=== PATIENT | male | born 1965 | race Caucasian/White ===

== ENCOUNTER 2021-04-22 15:15 | Inpatient (IN) | payer MEDICAID, OTHER ==
[~2021-04-22] VITALS: Ht 177.8 cm; Wt 132.9 kg
[2021-04-22 17:06] LABS: BASOPHILS % (AUTO) 0.9 % (0.0-2.0); HEMATOCRIT 49.2 % (41-53); HEMOGLOBIN 16.1 g/dL (13.5-17.5); LYMPHOCYTES # (AUTO) 3.5 K/uL (1.0-4.8); LYMPHOCYTES % (AUTO) 31.7 % (22.0-44.0); MEAN CORPUSCULAR HEMOGLOBIN 29.5 pg (26.0-34.0); MEAN CORPUSCULAR HGB CONC 32.7 G/dL (31.0-37.0); MEAN CORPUSCULAR VOLUME 90 fL (80-100); MONOCYTES # (AUTO) 0.7 K/uL (0.1-1.0); MONOCYTES % (AUTO) 6.3 % (2.0-9.0); NEUTROPHILS # (AUTO) 6.6 K/uL (1.8-7.7); NEUTROPHILS % (AUTO) 60.1 % (40.0-70.0); PLATELET COUNT (AUTO) 255 K/uL (150-450); RED BLOOD CELL COUNT(AUTO) 5.46 MIL/uL (4.50-5.90); RED CELL DISTRIBUTION WIDTH 14.6 % (11.5-14.5)
[2021-04-22 17:23] LABS: ANION GAP 14 mmol/L (8-16); CALCIUM, TOTAL 9.1 mg/dL (8.8-10.5); CARBON DIOXIDE 24 mmol/L (22-29); CHLORIDE 100 mmol/L (98-107); CREATININE 1.05 mg/dL (0.60-1.30); GLOMERULAR FILTR. RATE CALC > 60 mL/min (>60); GLUCOSE,RANDOM 116 mg/dL (70-110); POTASSIUM 3.6 mmol/L (3.5-5.1); SODIUM SERUM 138 mmol/L (136-145); UREA NITROGEN, BLOOD 22 mg/dL (7-18)
[2021-04-22 17:30] LABS: ALANINE AMINOTRANSFERASE 28 U/L (12-78); ALBUMIN 3.7 g/dL (3.4-5.0); ALKALINE PHOSPHATASE 106 U/L (46-116); ASPARTATE AMINOTRANSFERASE 25 U/L (15-37); BILIRUBIN,TOTAL 0.6 mg/dL (0.1-1.0); TOTAL PROTEIN, SERUM 8.4 g/dL (6.4-8.2)
[2021-04-22] MEDS ORDERED: POLYMYXIN B/TRIMETHOPRIM 10 ML OPHTHALMIC SOLUTION OU ONE (21:00)
[2021-04-22] MEDS ORDERED: KETOROLAC TROMETHAMINE 30 MG/ML VIAL IM ONE (21:00)
[2021-04-22 22:21] LABS: COVID AG,FIA SOURCE NASOPHARYNGEAL
[2021-04-23] MEDS ORDERED: LORazepam 2 MG TABLET PO PRN (01:15)
[2021-04-23] MEDS ORDERED: POLYMYXIN B/TRIMETHOPRIM 10 ML OPHTHALMIC SOLUTION OU ONE (03:30)
[2021-04-23] MEDS: POLYMYXIN B/TRIMETHOPRIM 10 ML OPHTHALMIC SOLUTION OU SCH ×5 (04:10→16:00)
[2021-04-23] MEDS ORDERED: DOCUSATE SODIUM 100 MG CAPSULE PO PRN (06:30)
[2021-04-23] MEDS ORDERED: OMEPRAZOLE 20 MG CAPSULE PO PRN (06:30)
[2021-04-23] MEDS ORDERED: ONDANSETRON HCL 4 MG TABLET PO PRN (06:30)
[2021-04-23] MEDS ORDERED: CloNIDine HCL 0.1 MG TABLET PO PRN (06:30)
[2021-04-23] MEDS ORDERED: MAG HYDROX/AL HYDROX/SIMETH ES 30 ML SUSPENSION UDCUP PO PRN (06:30)
[2021-04-23] MEDS ORDERED: ACETAMINOPHEN 325 MG TABLET PO PRN (06:30)
[2021-04-23] MEDS ORDERED: MAGNESIUM HYDROXIDE SUSPENSION 30 ML UDCUP PO PRN (06:30)
[2021-04-23] MEDS ORDERED: BENZOCAINE/MENTHOL LOZENGE PO PRN (06:30)
[2021-04-23] MEDS ORDERED: LOPERAMIDE HCL 2 MG CAPSULE PO PRN (06:30)
[2021-04-23] MEDS ORDERED: IBUPROFEN 600 MG TABLET PO PRN (06:30)
[2021-04-23] MEDS ORDERED: BACITRACIN 28 GM OINTMENT TP PRN (06:30)
[2021-04-23] MEDS ORDERED: PETROLATUM,WHITE 28 GM JELLY TP PRN (06:30)
[2021-04-23] MEDS ORDERED: ALBUTEROL SULFATE HFA 90 MCG/PUFF 8 GM INHALER IH PRN (06:30)
[2021-04-23 12:57] VITALS: BP 157/64
[2021-04-23] MEDS ORDERED: PERMETHRIN 5% 60 GM CREAM TP ONE ×2 (15:45→16:00)
[2021-04-23 16:19] VITALS: BP 139/83
[2021-04-24 00:40] VITALS: BP 138/78
[2021-04-24] MEDS ORDERED: PERMETHRIN 5% 60 GM CREAM TP ONE (01:00)
[2021-04-24] MEDS ORDERED: HALOPERIDOL LACTATE 5 MG/ML VIAL ONE (20:29)
[2021-04-24] MEDS ORDERED: DiphenhydrAMINE HCL 50 MG/ML VIAL ONE (20:29)
[2021-04-24] MEDS ORDERED: LORazepam 2 MG/ML VIAL ONE (20:29)
[2021-04-24] MEDS ORDERED: HALOPERIDOL LACTATE 5 MG/ML VIAL IM ONE (20:30)
[2021-04-24] MEDS ORDERED: LORazepam 2 MG/ML VIAL IM ONE (20:30)
[2021-04-24] MEDS ORDERED: DiphenhydrAMINE HCL 50 MG/ML VIAL IM ONE (20:30)
[2021-04-25] MEDS ORDERED: CloZAPine 25 MG TABLET PO SCH (09:00)
[2021-04-25] MEDS ORDERED: LORazepam 2 MG/ML VIAL ONE (11:42)
[2021-04-25] MEDS ORDERED: HALOPERIDOL LACTATE 5 MG/ML VIAL ONE (11:43)
[2021-04-25] MEDS ORDERED: DiphenhydrAMINE HCL 50 MG/ML VIAL ONE (11:43)
[2021-04-25] MEDS ORDERED: HALOPERIDOL LACTATE 5 MG/ML VIAL IM ONE (11:45)
[2021-04-25] MEDS ORDERED: LORazepam 2 MG/ML VIAL IM ONE (11:45)
[2021-04-25] MEDS ORDERED: DiphenhydrAMINE HCL 50 MG/ML VIAL IM ONE (11:45)
[2021-04-25] MEDS: HALOPERIDOL 5 MG TABLET PO PRN (20:21)
[2021-04-26 08:13] VITALS: BP 158/105
[2021-04-26] MEDS ORDERED: CloZAPine 25 MG TABLET PO SCH ×2 (09:00→21:00)
[2021-04-26 16:00] VITALS: BP 122/89
[2021-04-26 16:29] VITALS: BP 122/89
[2021-04-27 04:50] VITALS: BP 145/80
[2021-04-27 08:36] VITALS: BP 129/88
[2021-04-27] MEDS ORDERED: CloZAPine 25 MG TABLET PO SCH ×2 (09:00→21:00)
[2021-04-27 16:00] VITALS: BP 149/94
[2021-04-27 16:02] VITALS: BP 149/94
[2021-04-27] MEDS: ZOLPIDEM TARTRATE 10 MG TABLET PO PRN (22:40)
[2021-04-28 05:27] VITALS: BP 124/91
[2021-04-28 06:09] LABS: BASOPHILS % (AUTO) 1.2 % (0.0-2.0); EOSINOPHILS % (AUTO) 1.7 % (1.0-6.0); HEMATOCRIT 45.1 % (41-53); HEMOGLOBIN 14.8 g/dL (13.5-17.5); LYMPHOCYTES # (AUTO) 3.6 K/uL (1.0-4.8); MEAN CORPUSCULAR HEMOGLOBIN 29.7 pg (26.0-34.0); MEAN CORPUSCULAR HGB CONC 32.8 G/dL (31.0-37.0); MEAN CORPUSCULAR VOLUME 91 fL (80-100); MONOCYTES # (AUTO) 0.9 K/uL (0.1-1.0); MONOCYTES % (AUTO) 8.5 % (2.0-9.0); NEUTROPHILS # (AUTO) 5.6 K/uL (1.8-7.7); NEUTROPHILS % (AUTO) 53.6 % (40.0-70.0); PLATELET COUNT (AUTO) 225 K/uL (150-450); RED BLOOD CELL COUNT(AUTO) 4.98 MIL/uL (4.50-5.90); RED CELL DISTRIBUTION WIDTH 14.4 % (11.5-14.5)
[2021-04-28 08:02] VITALS: BP 129/76
[2021-04-28] MEDS: CloZAPine 25 MG TABLET PO SCH ×2 (09:00→20:01)
[2021-04-28 09:55] LABS: COVID AG,FIA SOURCE NASAL SWAB
[2021-04-28 18:35] VITALS: BP 127/72
[2021-04-28] MEDS: HALOPERIDOL 5 MG TABLET PO PRN (19:06)
[2021-04-28] MEDS: ZOLPIDEM TARTRATE 10 MG TABLET PO PRN (21:02)
[2021-04-29] VITALS: BP 120/70
[2021-04-29 08:45] VITALS: BP 142/92
[2021-04-29] MEDS: CloZAPine 25 MG TABLET PO SCH (09:16)
[2021-04-29] MEDS ORDERED: TraMADol HCL 50 MG TABLET PO PRN (09:30)
[2021-04-29] MEDS ORDERED: CLOZ100T32 PO ×2 (12:56)
[2021-04-29] MEDS ORDERED: CloZAPine 100 MG TABLET PO SCH (21:00)
[2021-04-30] MEDS ORDERED: CloZAPine 25 MG TABLET PO SCH (09:00)
[2021-04-30] MEDS ORDERED: CloZAPine 100 MG TABLET PO SCH ×2 (09:00→21:00)
[2021-04-30] MEDS ORDERED: PERMETHRIN 5% 60 GM CREAM TP ONE (19:00)
[2021-05-01] MEDS ORDERED: CloZAPine 25 MG TABLET PO SCH (09:00)
[2021-05-01] MEDS ORDERED: CloZAPine 100 MG TABLET PO SCH (21:00)
[2021-05-02] MEDS ORDERED: CloZAPine 25 MG TABLET PO SCH (09:00)
[2021-05-02] MEDS ORDERED: CloZAPine 100 MG TABLET PO SCH (21:00)
[2021-05-03] MEDS ORDERED: CloZAPine 100 MG TABLET PO SCH (09:00)
[2021-05-05] MEDS ORDERED: CloZAPine 25 MG TABLET PO SCH (09:00)
[2021-05-05] MEDS ORDERED: CloZAPine 100 MG TABLET PO SCH (21:00)
[2021-05-06] MEDS ORDERED: CloZAPine 25 MG TABLET PO SCH (09:00)
[2021-05-06] MEDS ORDERED: CloZAPine 100 MG TABLET PO SCH (21:00)
[2021-05-07] MEDS ORDERED: CloZAPine 100 MG TABLET PO SCH ×2 (09:00→21:00)
== END 2021-04-29 16:30 | disposition home or self-care (01) | DRG 750 ==
LOC: EMS 15:22 → B2S 04-23 00:30 → 3EI 04-24 00:27
PROVIDERS: ADMIT Psychiatry & Neurology Psychiatry; ATTEND Psychiatry & Neurology Psychiatry
DX: F25.9 Schizoaffective disorder, unspecified (principal); R45.851 Suicidal ideations; I10 Essential (primary) hypertension; E66.9 Obesity, unspecified; F32.9 Major depressive disorder, single episode, unspecified; F41.9 Anxiety disorder, unspecified; G47.00 Insomnia, unspecified; K21.9 Gastro-esophageal reflux disease without esophagitis; K59.00 Constipation, unspecified; Z20.822 Contact with and (suspected) exposure to COVID-19; L30.9 Dermatitis, unspecified; Z56.0 Unemployment, unspecified; Z68.41 Body mass index [BMI] 40.0-44.9, adult
CPT/HCPCS: 70450; 80053; 85025; 87081; 99285; G0480; J1200; J1630; J1885; J2060

== ENCOUNTER 2023-10-25 12:53 | Inpatient (IN) | payer MEDICAID, OTHER ==
[~2023-10-25] VITALS: Ht 180.3 cm; Wt 142.7 kg
[~2023-10-25 12:53] MED LIST: CLOZ100T68 PO
[2023-10-25 15:09] LABS: BASOPHILS % (AUTO) 1.2 % (0.0-2.0); EOSINOPHILS % (AUTO) 0.7 % (1.0-6.0); HEMOGLOBIN 12.8 g/dL (13.5-17.5); LYMPHOCYTES # (AUTO) 3.5 K/uL (1.0-4.8); LYMPHOCYTES % (AUTO) 30.5 % (22.0-44.0); MEAN CORPUSCULAR HEMOGLOBIN 29.4 pg (26.0-34.0); MEAN CORPUSCULAR VOLUME 89 fL (80-100); MONOCYTES # (AUTO) 0.6 K/uL (0.1-1.0); MONOCYTES % (AUTO) 5.2 % (2.0-9.0); NEUTROPHILS # (AUTO) 7.1 K/uL (1.8-7.7); NEUTROPHILS % (AUTO) 62.4 % (40.0-70.0); PLATELET COUNT (AUTO) 278 K/uL (150-450); RED BLOOD CELL COUNT(AUTO) 4.37 MIL/uL (4.50-5.90); RED CELL DISTRIBUTION WIDTH 16.1 % (11.5-14.5); WHITE BLOOD COUNT (AUTO) 11.4 K/uL (4.5-11.0)
[2023-10-25 15:21] LABS: ANION GAP 11 mmol/L (8-16); CALCIUM, TOTAL 8.9 mg/dL (8.8-10.5); CARBON DIOXIDE 22 mmol/L (22-29); CHLORIDE 107 mmol/L (98-107); CREATININE 0.93 mg/dL (0.60-1.30); GLOMERULAR FILTR. RATE CALC > 60 mL/min (>60); GLUCOSE,RANDOM 108 mg/dL (70-110); POTASSIUM 3.7 mmol/L (3.5-5.1); SODIUM SERUM 140 mmol/L (136-145); UREA NITROGEN, BLOOD 16 mg/dL (7-18)
[2023-10-25 15:25] LABS: ALANINE AMINOTRANSFERASE 21 U/L (12-78); ALBUMIN 3.1 g/dL (3.4-5.0); ALKALINE PHOSPHATASE 122 U/L (46-116); ASPARTATE AMINOTRANSFERASE 9 U/L (15-37); BILIRUBIN,TOTAL 0.2 mg/dL (0.1-1.0); TOTAL PROTEIN, SERUM 7.4 g/dL (6.4-8.2)
[2023-10-25 15:33] LABS: ALCOHOL, BLOOD (SERUM) < 3 mg/dL (0-10); SALICYLATE 2.6 mg/dL (2.8-20.0)
[2023-10-25 15:34] LABS: ACETAMINOPHEN < 2 mcg/mL (10-30)
[2023-10-25] MEDS: SODIUM CHLORIDE 0.9% 1,000 ML IV ONE ×2 (16:09→20:59)
[2023-10-25] MEDS ORDERED: BUPR-225 PO (17:29)
[2023-10-25] MEDS ORDERED: SENN-277 PO (17:29)
[2023-10-25] MEDS ORDERED: CHOL500013 PO (17:29)
[2023-10-25] MEDS ORDERED: LINA290C PO (17:29)
[2023-10-25] MEDS ORDERED: TOPI100T37 PO (17:29)
[2023-10-25] MEDS ORDERED: AMLO-257 PO (17:29)
[2023-10-25 18:18] LABS: ANION GAP 14 mmol/L (8-16); CALCIUM, TOTAL 8.5 mg/dL (8.8-10.5); CARBON DIOXIDE 19 mmol/L (22-29); CHLORIDE 108 mmol/L (98-107); CREATININE 0.94 mg/dL (0.60-1.30); GLOMERULAR FILTR. RATE CALC > 60 mL/min (>60); GLUCOSE,RANDOM 130 mg/dL (70-110); POTASSIUM 3.4 mmol/L (3.5-5.1); SODIUM SERUM 141 mmol/L (136-145); UREA NITROGEN, BLOOD 17 mg/dL (7-18)
[2023-10-25 18:24] LABS: ALANINE AMINOTRANSFERASE 21 U/L (12-78); ALKALINE PHOSPHATASE 119 U/L (46-116); ASPARTATE AMINOTRANSFERASE 9 U/L (15-37); BILIRUBIN,TOTAL 0.2 mg/dL (0.1-1.0); TOTAL PROTEIN, SERUM 7.1 g/dL (6.4-8.2)
[2023-10-25 18:44] LABS: COVID AG,FIA SOURCE NASAL SWAB
[2023-10-25 19:01] LABS: SARS-COV2 (COVID) ANTIGEN,FIA Negative (Negative)
[2023-10-25] MEDS ORDERED: LORazepam 2 MG TABLET PO PRN (20:45)
[2023-10-25] MEDS: POTASSIUM CHLORIDE 20 MEQ ER TABLET PO ONE (23:30)
[2023-10-25 23:57] LABS: ALANINE AMINOTRANSFERASE 20 U/L (12-78); ALKALINE PHOSPHATASE 109 U/L (46-116); ANION GAP 12 mmol/L (8-16); ASPARTATE AMINOTRANSFERASE 8 U/L (15-37); BILIRUBIN,TOTAL 0.3 mg/dL (0.1-1.0); CALCIUM, TOTAL 8.2 mg/dL (8.8-10.5); CARBON DIOXIDE 20 mmol/L (22-29); CHLORIDE 110 mmol/L (98-107); CREATININE 0.89 mg/dL (0.60-1.30); GLOMERULAR FILTR. RATE CALC > 60 mL/min (>60); GLUCOSE,RANDOM 128 mg/dL (70-110); POTASSIUM 3.5 mmol/L (3.5-5.1); SODIUM SERUM 142 mmol/L (136-145); TOTAL PROTEIN, SERUM 6.4 g/dL (6.4-8.2); UREA NITROGEN, BLOOD 18 mg/dL (7-18)
[2023-10-25 23:58] LABS: ALBUMIN 2.7 g/dL (3.4-5.0)
[2023-10-26 00:51] LABS: PH,URINE DRUG SCREEN 6.5 (5.0-8.0)
[2023-10-26 00:55] LABS: ALCOHOL, URINE DRUG SCREEN NEGATIVE (NEGATIVE); AMPHET/METH SCREEN,URINE NEGATIVE (NEGATIVE); BARBITURATE SCREEN, URINE NEGATIVE (NEGATIVE); BENZODIAZEPINES SCREEN,URINE NEGATIVE (NEGATIVE); CANNABINOID SCREEN,URINE NEGATIVE (NEGATIVE); COCAINE SCREEN,URINE NEGATIVE (NEGATIVE); METHADONE SCREEN, URINE NEGATIVE (NEGATIVE); OPIATE SCREEN,URINE NEGATIVE (NEGATIVE); PHENCYCLIDINE SCREEN,URINE NEGATIVE (NEGATIVE)
[2023-10-26 03:46] VITALS: BP 150/89; PULSE 88; RESP 18; TEMP 97.6
[2023-10-26 08:00] VITALS: BP 140/93; PULSE 86; RESP 16; TEMP 97.9
[2023-10-26] MEDS: NICOTINE 14 MG/24 HOUR PATCH TD SCH (08:33)
[2023-10-26 11:33] LABS: BASOPHILS % (AUTO) 0.9 % (0.0-2.0); EOSINOPHILS % (AUTO) 1.2 % (1.0-6.0); HEMATOCRIT 39.8 % (41-53); HEMOGLOBIN 13.3 g/dL (13.5-17.5); LYMPHOCYTES # (AUTO) 2.6 K/uL (1.0-4.8); LYMPHOCYTES % (AUTO) 28.3 % (22.0-44.0); MEAN CORPUSCULAR HEMOGLOBIN 29.8 pg (26.0-34.0); MEAN CORPUSCULAR HGB CONC 33.4 G/dL (31.0-37.0); MEAN CORPUSCULAR VOLUME 89 fL (80-100); MONOCYTES # (AUTO) 0.5 K/uL (0.1-1.0); MONOCYTES % (AUTO) 4.9 % (2.0-9.0); NEUTROPHILS % (AUTO) 64.7 % (40.0-70.0); PLATELET COUNT (AUTO) 269 K/uL (150-450); RED BLOOD CELL COUNT(AUTO) 4.47 MIL/uL (4.50-5.90); RED CELL DISTRIBUTION WIDTH 16.1 % (11.5-14.5); WHITE BLOOD COUNT (AUTO) 9.3 K/uL (4.5-11.0)
[2023-10-26] MEDS: BuPROPion HCL 100 MG SR TABLET PO SCH (12:08)
[2023-10-26] MEDS ORDERED: MAGNESIUM HYDROXIDE SUSPENSION 30 ML UDCUP PO PRN (16:45)
[2023-10-26] MEDS ORDERED: ONDANSETRON HCL 4 MG TABLET PO PRN (16:45)
[2023-10-26] MEDS ORDERED: DOCUSATE SODIUM 100 MG CAPSULE PO PRN (16:45)
[2023-10-26] MEDS ORDERED: CloNIDine HCL 0.1 MG TABLET PO PRN (16:45)
[2023-10-26] MEDS ORDERED: MAG HYDROX/ALUMINUM HYD/SIMETH ES 30 ML SUSPENSION UDCUP PO PRN (16:45)
[2023-10-26] MEDS ORDERED: LOPERAMIDE HCL 2 MG CAPSULE PO PRN (16:45)
[2023-10-26] MEDS ORDERED: ACETAMINOPHEN 325 MG TABLET PO PRN (16:45)
[2023-10-26] MEDS ORDERED: NICOTINE 14 MG/24 HOUR PATCH TD PRN (16:45)
[2023-10-26] MEDS ORDERED: GuaiFENesin/D-METHORPHAN [SUGAR-FREE] 200-20MG/10 ML SYRUP UDCUP PO PRN (16:45)
[2023-10-26] MEDS ORDERED: PETROLATUM,WHITE 28 GM JELLY TP PRN (16:45)
[2023-10-26] MEDS ORDERED: IBUPROFEN 400 MG TABLET PO PRN (16:45)
[2023-10-26] MEDS ORDERED: ALBUTEROL SULFATE HFA 90 MCG/PUFF 8 GM INHALER IH PRN (16:45)
[2023-10-26] MEDS: CHOLECALCIFEROL (VIT D3) 5,000 [125 MCG] UNITS CAPSULE PO SCH (20:48)
[2023-10-26] MEDS ORDERED: CloZAPine 100 MG TABLET PO SCH (21:00)
[2023-10-26 22:43] VITALS: BP 138/73; PULSE 80; RESP 18; TEMP 97.2
[2023-10-27] MEDS: HALOPERIDOL 5 MG TABLET PO PRN (05:45)
[2023-10-27 06:12] LABS: HEMOGLOBIN A1C 5.8 % (3.8-5.6)
[2023-10-27 06:25] LABS: THYROID STIMULATING HORMONE 1.96 uIU/mL (0.36-3.74)
[2023-10-27] MEDS: AmLODIPine BESYLATE 5 MG TABLET PO SCH (09:05)
[2023-10-27 10:18] VITALS: BP 133/6; PULSE 75; RESP 18; TEMP 97.8
[2023-10-27 11:04] LABS: CHOL/HDL RATIO 6.2 (4.2-7.3)
[2023-10-27 20:06] VITALS: BP 131/79; PULSE 86; RESP 18; TEMP 98.3
[2023-10-27] MEDS: ZOLPIDEM TARTRATE 10 MG TABLET PO PRN (21:09)
[2023-10-28 08:12] LABS: APPEARANCE,URINE CLEAR (CLEAR); BILIRUBIN,URINE NEGATIVE (NEGATIVE); COLOR,URINE LIGHT YELLOW (YELLOW); GLUCOSE, URINE (UA) NEGATIVE (NEGATIVE); KETONES,URINE NEGATIVE (NEGATIVE); LEUKOCYTE ESTERASE ,URINE NEGATIVE (NEGATIVE); NITRATE,URINE NEGATIVE (NEGATIVE); OCCULT BLOOD,URINE NEGATIVE (NEGATIVE); PH,URINE 6.5 (5.0-8.0); PH,URINE DRUG SCREEN 6.5 (5.0-8.0); PROTEIN,URINE NEGATIVE (NEGATIVE); SPECIFIC GRAVITIY, URINE 1.018 (1.003-1.030); UROBILINOGEN,URINE <=1.0 mg/dL (<=1.0)
[2023-10-28 08:18] LABS: ALCOHOL, URINE DRUG SCREEN NEGATIVE (NEGATIVE); AMPHET/METH SCREEN,URINE NEGATIVE (NEGATIVE); BARBITURATE SCREEN, URINE NEGATIVE (NEGATIVE); BENZODIAZEPINES SCREEN,URINE NEGATIVE (NEGATIVE); CANNABINOID SCREEN,URINE NEGATIVE (NEGATIVE); COCAINE SCREEN,URINE NEGATIVE (NEGATIVE); METHADONE SCREEN, URINE NEGATIVE (NEGATIVE); OPIATE SCREEN,URINE NEGATIVE (NEGATIVE); PHENCYCLIDINE SCREEN,URINE NEGATIVE (NEGATIVE)
[2023-10-28 10:13] VITALS: BP 143/90; PULSE 85; RESP 18; TEMP 97
[2023-10-28] MEDS ORDERED: BUPR-225 PO (16:42)
== END 2023-10-28 12:55 | disposition home or self-care (01) | DRG 750 ==
LOC: EMS 12:53 → 3EI 21:50
PROVIDERS: ADMIT Psychiatry & Neurology Child & Adolescent Psychiatry; ATTEND Psychiatry & Neurology Child & Adolescent Psychiatry
DX: F20.9 Schizophrenia, unspecified (principal); E11.9 Type 2 diabetes mellitus without complications; D64.9 Anemia, unspecified; E55.9 Vitamin D deficiency, unspecified; F11.10 Opioid abuse, uncomplicated; I10 Essential (primary) hypertension; Z20.822 Contact with and (suspected) exposure to COVID-19; T50.902A Poisoning by unspecified drugs, medicaments and biological substances, intentional self-harm, initial encounter; K59.00 Constipation, unspecified; Y92.89 Other specified places as the place of occurrence of the external cause
CPT/HCPCS: 80053; 80061; 80307; 81003; 83036; 84443; 85025; 93005; 99291; G0480; G0481; J7030